=== PATIENT | female | born 1975 | race Caucasian/White ===

== ENCOUNTER 2018-07-03 18:55 | Emergency (ER) | payer MEDICARE ==
[2018-07-03] MEDS: ALPRAZOLAM 1 MG TAB PO (21:34)
[2018-07-03] MEDS: ONDANSETRON (ODT) 4 MG TAB ODT (21:34)
== END 2018-07-04 00:24 | disposition home or self-care (01) ==
LOC: FTE 07-04 00:24
DX: F41.9 Anxiety disorder, unspecified (principal); I10 Essential (primary) hypertension; E11.9 Type 2 diabetes mellitus without complications
CPT/HCPCS: 99283